=== PATIENT | female | born 1990 | race Caucasian/White ===

== ENCOUNTER → 2017-10-02 | Outpatient (CLI) | payer OTHER ==
[2017-10-02 11:19] LABS: BASOPHIL % 0.3 % (0-2); PLATELET COUNT 395 x10^3mcL (130-400); RED CELL DISTRIBUTION WIDTH 13.9 % (11.5-14.5)
[2017-10-02 11:59] LABS: UA SPECIFIC GRAVITY 1.015 (1.005-1.035); microscopic required? YES; urine erythrocyte NEGATIVE (NEGATIVE)
[2017-10-02 12:39] LABS: ALKALINE PHOSPHATASE 86 U/L (46-116); ALT/SGPT 23 U/L (14-59); AST/SGOT 19 U/L (15-37); BILIRUBIN TOTAL 0.27 mg/dL (0.20-1.00); CALCIUM 9.3 mg/dL (8.5-10.1); CARBON DIOXIDE 27.2 mmol/L (21-32); CHLORIDE SERUM 103 mmol/L (98-107); CHOLESTEROL 174 mg/dL (<200); CHOLESTEROL/HDL RATIO 3.1; CREATININE SERUM 0.8 mg/dL (0.6-1.0); GFR1 > 60 mL/min; GLUCOSE SERUM 94 mg/dL (74-106); HDL CHOLESTEROL 56 mg/dL (40-60); SODIUM SERUM 139 mmol/L (136-145); TRIGLYCERIDES 150 mg/dL (<150)
[2017-10-02 12:40] LABS: ALBUMIN 3.3 g/dL (3.4-5.0); TOTAL PROTEIN, SERUM 8.6 g/dL (6.4-8.2)
== END | disposition home or self-care (01) ==
LOC: LB 09:18
DX: Z13.228 Encounter for screening for other metabolic disorders (principal); Z72.51 High risk heterosexual behavior; Z86.39 Personal history of other endocrine, nutritional and metabolic disease; Z13.0 Encounter for screening for diseases of the blood and blood-forming organs and certain disorders involving the immune mechanism; Z13.220 Encounter for screening for lipoid disorders; Z13.29 Encounter for screening for other suspected endocrine disorder

== ENCOUNTER → 2020-06-06 | Outpatient (CLI) | payer OTHER ==
[2020-06-06 07:38] LABS: microscopic required? NO
[2020-06-06 07:45] LABS: BASOPHIL % 1.2 % (0-2); PLATELET COUNT 273 x10^3mcL (130-400); RED CELL DISTRIBUTION WIDTH 13.5 % (11.5-14.5)
[2020-06-06 07:52] LABS: urine erythrocyte NEGATIVE (NEGATIVE)
[2020-06-06 08:40] LABS: CHOLESTEROL/HDL RATIO 4.4; FREE T4 1.04 ng/dL (0.76-1.46)
[2020-06-10 13:06] LABS: VITAMIN D 1,25 DIHYDROXY 54.7 pg/mL (19.9-79.3)
== END | disposition home or self-care (01) ==
LOC: LB 07:01
DX: R73.03 Prediabetes (principal); Z13.29 Encounter for screening for other suspected endocrine disorder; Z13.228 Encounter for screening for other metabolic disorders; Z13.21 Encounter for screening for nutritional disorder; Z13.220 Encounter for screening for lipoid disorders; Z83.3 Family history of diabetes mellitus; Z13.0 Encounter for screening for diseases of the blood and blood-forming organs and certain disorders involving the immune mechanism
CPT/HCPCS: 82652; 84439

== ENCOUNTER 2020-09-02 09:52 | Inpatient (IN) | payer OTHER ==
[~2020-09-02] VITALS: Ht 170.2 cm; Wt 137.6 kg
--- NOTE | 2020-09-02 10:37 | NUR ---
PT PRESENTS WITH EPIGASTRIC PAIN THAT BEGAN 1 WEEK AGO. SHE DESCRIBES IT A DULL AND ACHY PAIN, NON RADIATING AND WORSE IN BETWEEN MEALS. SHE ENDORSES NAUSEA AND SOME DIARRHEA WITH NO VOMITING. PT IS AWAKE, ALERT, RESP E/U WITH NAD NOTED.
[2020-09-02 11:04] LABS: PLATELET COUNT 384 x10^3mcL (130-400); RED CELL DISTRIBUTION WIDTH 14.1 % (11.5-14.5)
[2020-09-02 11:17] LABS: CARBON DIOXIDE 25.8 mmol/L (21-32); CHLORIDE SERUM 102 mmol/L (98-107); CREATININE SERUM 0.7 mg/dL (0.6-1.0); GFR1 > 60 mL/min; GLUCOSE SERUM 122 mg/dL (74-106); POTASSIUM SERUM 3.6 mmol/L (3.5-5.1); SODIUM SERUM 137 mmol/L (136-145)
[2020-09-02 11:21] LABS: ALBUMIN 3.4 g/dL (3.4-5.0); ALKALINE PHOSPHATASE 110 U/L (46-116); ALT/SGPT 47 U/L (14-59); AMYLASE 32 U/L (25-115); AST/SGOT 25 U/L (15-37); BILIRUBIN TOTAL 0.24 mg/dL (0.20-1.00); LIPASE 181 IU/L (73-393); TOTAL PROTEIN, SERUM 8.1 g/dL (6.4-8.2)
--- NOTE | 2020-09-02 12:14 | NUR ---
PT SITTING UPRIGHT IN BED. AWAKE, ALERT, RESP E/U WITH NAD NOTED. PT REPORTS IMPROVEMENT OF PAIN
[2020-09-02] MEDS ORDERED: FORTAMET1000 MG PO (12:34)
[2020-09-02 12:49] LABS: MAGNESIUM 1.8 mg/dL (1.8-2.4); PHOSPHOROUS 2.9 mg/dL (2.5-4.9)
[2020-09-02 12:59] LABS: FREE T4 1.01 ng/dL (0.76-1.46); FREE THYROXINE INDEX 2.2 ug/dL (1.4-4.5); T4(THYROXINE) 6.3 ug/dL (4.7-13.3)
--- NOTE | 2020-09-02 13:19 | NUR ---
PT RETURNED FROM CT WITH CONTRAST, PER PT FELT MILD ITCHINESS IN THROAT. MADE AWARE.
--- NOTE | 2020-09-02 13:28 | NUR ---
ADMIN MED PER MD ORDER. PT STS NO ALLERGY TO MED, AAO4, RESP E/U, NO DISTRESS.
--- NOTE | 2020-09-02 13:56 | NUR ---
PT SEEN AMBULATING TO THE RESTROOM HAS A STEADY GAIT. PT AAO X4 RESPIRATIONS E/U NO DISTRESS NOTED.
[2020-09-02 14:17] LABS: T3 TOTAL 0.77 ng/mL
--- NOTE | 2020-09-02 14:41 | NUR ---
PT STATES NO MORE THROAT ITCHINESS. PT STATES STAFF FROM ADMISSION DROPPED BELONGINGS OFF TO HER. PT STATES ALL BELONGINGS ARE THERE AND IN BACKPACK LEFT BY PTS FRIEND.
[2020-09-02 14:48] LABS: MONOCYTE 2 % (0-7); SEGMENTED NEUTROPHILS 69 % (37-75); rbc morphology (normal/abnorm) NORMAL (NORMAL)
--- NOTE | 2020-09-02 15:17 | NUR ---
PT LAYING SUPINE IN GURNEY IN A POSITION OF COMFORT. REPORTS PAIN IS AT A 1/10. PT WATCHING TV. PT AAO X4 RESPIRATIONS E/U NO DISTRESS NOTED.
--- NOTE | 2020-09-02 15:24 | NUR ---
CALLED REPORT TO VIVIANA SCOTT TO ASSUME PRIMARY CARE OF PT.
--- NOTE | 2020-09-02 15:34 | NUR ---
RECEIVED PT FROM ED [facility] [facility], CAME IN DUE TO EPIGASTRIC PAIN X1 WEEK. AAOX4. DENIES HEADACHE/DIZZINESS. ABLE TO FOLLOW COMMANDS. NO SOB NOTED, LUNG SOUNDS CTA. O2 JEB=089%, RA. DENIES CHEST PAIN/PRESSURE. DENIES NUMBNESS/TINGLING SENSATION. STATED THAT SHE HAS 1/10 CONSTANT AND ACHING EPIGASTRIC PAIN, PATIENT STATED THAT PAIN IS TOLERABLE AT THIS TIME. ABDOMEN IS SOFT. BOWEL SOUNDS ACTIVE. DENIES NAUSEA/VOMITING. BOWEL SOUNDS ACTIVE. STATED THAT HER LAST BM WAS FORMED, BUT HAS IN AND OUT EPISODES OF DIARRHEA AND CONSTIPATION. VOIDS. IV SITE ON THE RAC IS PATENT AND INTACT. SIDE RAILS UPX2. CALL LIGHT ON REACH. ENDORSED TO PRIMARY NURSE VIVIANA FOR CONTINUITY OF CARE
--- NOTE | 2020-09-02 15:37 | NUR ---
RECIEVED PT IN A STABLE CONDITION FROM THE ER AT 1530. SHE IS A 30Y FEMALE ADMITTED TODAY WITH A CC OF EPIGASTRIC PAIN OVER THE PAST WEEK, WITH HER ADMITTING DX OF ABDOMINAL PAIN/LEUKOCYTOSIS. SHE IS AAOX4, PULSES PALPABLE THROUGHOUT WITH NO EDEMA NOTED. SHE IS ON ROOM AIR WITH GOOD SATURATION AT 100% AND LUNGS CTAB. ABDOMEN SOFT AND NON-DISTENDED WITH NORMOACTIVE BOWEL SOUNDS. SHE IS AMBULATORY AND SKIN IS INTACT WITH NO WOUNDS NOTED. NS RUNING AT 100ML/HR INTO IV ON HER RIGHT AC. MRSA SWAB COLLECTED. BED IS IN THE LOW POSITION WITH THE CALL LIGHT IN REACH. WILL CONTINUE TO MONITOR.
[2020-09-02 15:42] VITALS: BP 149/97
[2020-09-02 15:48] VITALS: Ht 170.2 cm; Wt 137.6 kg
--- NOTE | 2020-09-02 16:50 | NUR ---
PNEUMOCOCCAL VACCINE GIVEN AND ALL OTHER INTERVENTIONS CARRIED OUT PER PROTOCOL WITH NO SIGNIFICANT CHANGES IN STATUS NOTED. WILL CONTINUE TO MONITOR.
[2020-09-02 17:08] VITALS: BP 137/85
--- NOTE | 2020-09-02 18:32 | NUR ---
CLEAN CATCH URINE COLLECTED AND SENT TO THE LAB PER ORDER.
[2020-09-02 18:36] LABS: UA SPECIFIC GRAVITY <=1.005 (1.005-1.035); microscopic required? YES; urine erythrocyte 2+ (NEGATIVE)
[2020-09-02 18:44] LABS: AMPHETAMINE QUAL UR NONE DETECTED (See below)
--- NOTE | 2020-09-02 20:00 | NUR ---
Received pt in bed, condition stable Awake and alert Denied pain or discomfort No signs of distress noted
[2020-09-02 21:15] VITALS: BP 133/93
[2020-09-03 04:42] VITALS: BP 120/44
--- NOTE | 2020-09-03 06:20 | NUR ---
Pt slept overnight, condition stable No signs of distress noted All due care rendered Denied pain or discomfort Vitals stable
[2020-09-03 07:31] LABS: PLATELET COUNT 346 x10^3mcL (130-400); RED CELL DISTRIBUTION WIDTH 14.1 % (11.5-14.5)
[2020-09-03 07:38] VITALS: BP 130/82
--- NOTE | 2020-09-03 07:50 | NUR ---
RECIEVED PT IN A STABLE CONDITION. PT IS A 30Y FEMALE ADMITTED ON 09/02 WITH A CC OF EPIGASTRIC PAIN X1 WEEK AND HER ADMITTING DX IS EPIGASTRIC PAIN AND LEUKOCYTOSIS. SHE HAS AN ALLERGY TO IODINE EVIDENCED BY HER REQUIRING BENADRYL AFTER RECIEVING CONTRAST FOR HER CT SCAN CAUSING HER TO HAVE AN ITCHY THROAT. PULSES PALPABLE THROUGHOUT AND NO EDEMA NOTED. LUNGS CTA AND SHE IS SATTING WELL ON ROOM AIR. ABDOMEN SOFT AND NORMOACTIVE X4. BED IS IN THE LOW POSITION AND THE CALL LIGHT IS IN REACH. WILL CONTINUE TO MONITOR.
[2020-09-03 08:13] LABS: ALKALINE PHOSPHATASE 99 U/L (46-116); ALT/SGPT 43 U/L (14-59); AST/SGOT 22 U/L (15-37); BILIRUBIN TOTAL 0.33 mg/dL (0.20-1.00); CALCIUM 8.7 mg/dL (8.5-10.1); CARBON DIOXIDE 25.4 mmol/L (21-32); CHLORIDE SERUM 106 mmol/L (98-107); CREATININE SERUM 0.8 mg/dL (0.6-1.0); GFR1 > 60 mL/min; GLUCOSE SERUM 117 mg/dL (74-106); POTASSIUM SERUM 3.9 mmol/L (3.5-5.1); SODIUM SERUM 141 mmol/L (136-145); TOTAL PROTEIN, SERUM 7.4 g/dL (6.4-8.2)
[2020-09-03 08:26] LABS: CHOLESTEROL/HDL RATIO 4.1
[2020-09-03 12:06] VITALS: BP 133/87
[2020-09-03 12:11] LABS: SEGMENTED NEUTROPHILS 64 % (37-75)
[2020-09-03 12:12] LABS: MONOCYTE 3 % (0-7); PLATELET MORPHOLOGY PLATELETS NORMAL; rbc morphology (normal/abnorm) ABNORMAL (NORMAL)
--- NOTE | 2020-09-03 15:04 | NUR ---
I ACKNOWLEDGED THE ORDER TO OBTAIN CONSENT FOR THE CT GUIDED LIVER BIOPSY POSSIBLY TO BE DONE TOMORROW, HOWEVER THE PATIENT HAD AN ALLERGIC REACTION IN THE ED ON ADMISSION WHEN THEY USED CONTRAST ON HER AND SHE REQUIRED BENADRYL FOR HER ITCHY THROAT. THEREFORE I CALLED RADIOLOGY TO INFORM THEM OF THE ALLERGY (WHICH IS LISTED ON HER EMR) AND INQUIRED IF THEY PLAN TO USE CONTRAST, AND I WAS TOLD THEY OFTEN DO NOT NEED IT, BUT I MADE THEM AWARE OF THE IODINE ALLERGY AND WAS TOLD I WILL RECIEVE A CALLBACK. I ALSO INFORMED THE ORDERING MD - DR TERAN, OF THE IODINE ALLERGY. I WILL ENDORSE FOR THE ONCOMING SHIFT TO PLACE HER NPO AT MIDNIGHT TONIGHT PER THE ORDER IN PREPARATION FOR THE PROCEDURE. WILL CONTINUE TO MONITOR.
--- NOTE | 2020-09-03 15:29 | NUR ---
SPOKE WITH DR WOLFE REGARDING LIVER MASS BIOPSY ORDERED, PATHOLOGIST WILL BE AVAILABLE IN THE AM, NOTIFIED PATIENT'S NURSE VIVIANA NOTIFIED REGARDING NEED FOR NPO POST MIDNIGHT STATUS.
[2020-09-03 16:07] VITALS: BP 136/89
--- NOTE | 2020-09-03 17:38 | NUR ---
PATIENT REMAINED STABLE THROUGHOUT THE REMAINDER OF THE SHIFT WITH ALL INTERVENTIONS CARRIED OUT PER PROTOCOL. SHE IS AWARE THAT SHE WILL BE NPO STARTING AT MIDNIGHT TONIGHT FOR HER PLANNED US-GUIDED LIVER BIOPSY, AND I WILL ENDORSE IT TO THE ONCOMING NURSE. ALL NEEDS MET, WILL CONTINUE TO MONITOR.
--- NOTE | 2020-09-03 20:00 | NUR ---
Received pt in bed, condition stable Denied pain or discomfort Scheduled for liver biopsy tomorrow
[2020-09-03 20:30] VITALS: BP 125/79
[2020-09-04 05:16] VITALS: BP 106/64
--- NOTE | 2020-09-04 05:44 | NUR ---
Slept overnight, condition stable All due care rendered, no signs of distress Denied pain or discomfort NPO, scheduled for liver biopsy today
--- NOTE | 2020-09-04 07:10 | NUR ---
RECEIVED PT FROM KANDI SCOTT. PT IS AAOX4. PT MED SURG STATUS. PT DENIES CHEST PAIN. PT ON RA, NO SOB OR DISTRESS. IV TO RAC, HEPLOCKED, CDI, AND PATENT. PT DENIES PAIN OR DISCOMFORT. ALL COMFORT AND SAFETY MEASURES IN PLACE. BED IN LOW POSITION, 2 SIDE RAILS UP. CALL LIGHT WITH IN REACH. ALL QUESTIONS AND CONCERNS ADDRESSED. WILL CONTINUE TO MONITOR PT.
[2020-09-04 07:21] LABS: CARBON DIOXIDE 26.8 mmol/L (21-32); CHLORIDE SERUM 105 mmol/L (98-107); CREATININE SERUM 0.7 mg/dL (0.6-1.0); GFR1 > 60 mL/min; GLUCOSE SERUM 108 mg/dL (74-106); PHOSPHOROUS 4.4 mg/dL (2.5-4.9); POTASSIUM SERUM 3.8 mmol/L (3.5-5.1); SODIUM SERUM 141 mmol/L (136-145)
[2020-09-04 07:49] LABS: PLATELET COUNT 332 x10^3mcL (130-400); RED CELL DISTRIBUTION WIDTH 14.1 % (11.5-14.5)
--- NOTE | 2020-09-04 08:46 | NUR ---
SPOKE WITH PATIENT'S NURSE GAVIN TO VERIFY NPO STATUS FOR LIVER BIOPSY THIS AM, AND TO NOTIFY THAT PATIENT IS SCHEDULED FOR 11 AM.
[2020-09-04 08:52] VITALS: BP 130/76
[2020-09-04 11:21] LABS: BAND NEUTROPHIL 2 % (0-10); BASOPHIL 0 % (0-2); MONOCYTE 4 % (0-7); SEGMENTED NEUTROPHILS 47 % (37-75)
[2020-09-04 12:27] VITALS: BP 117/64
--- NOTE | 2020-09-04 12:30 | NUR ---
PT RETURNED FROM LIVER BIOPSY. PT REMAINS STABLE W/ NO ACUTE CHANGES TO STATUS. ALL QUESTIONS AND CONCERNS ADDRESSED. WILL CONTIUE TO MONITOR PT.
--- NOTE | 2020-09-04 14:00 | NUR ---
VS TAKEN POST PROCEDURE. Q 15 X4. @1215 117/64 (81); 87; 94%. @1230 127/85 (96); 88; 95%. @1246 132/85 (101); 95, 93% @1300 124/81 (101) 84; 97%. Q 30 X2. @1330 122/78 (91) 87 99%. @1400 135/99 (112) 99% 98. WILL CONTINUE TO MONITOR PT.
[2020-09-04 16:54] VITALS: BP 145/81
--- NOTE | 2020-09-04 17:50 | NUR ---
PT REMAINS STABLE W/ NO ACUTE CHANGES TO STATUS. ALL QUESTIONS AND CONCERNS ADDRESSED. WILL CONTINUE TO MONITOR PT.
[2020-09-04] MEDS ORDERED: CIPROFLOXACIN500 MG PO (18:12)
--- NOTE | 2020-09-04 19:10 | NUR ---
REPORT GIVEN TO VIVIENNE SCOTT. PT REMAINED STABLE THROUGHOUT MY SHIFT. ALL QUESTIONS AND CONCERNS ADDRESSED. ALL CARES ENDORSED.
--- NOTE | 2020-09-04 19:30 | NUR ---
RECEIVED REPORT FROM DAY SHIFT RN. PT RESTING IN BED. AA&O X4. NO SOB ON ROOM AIR. NO C/O PAIN. IV TO LFA, SALINE LOCKED. PT AWARE OF DISCHARGE PLAN. SAFETY MEASURES IN PLACE. CALL LIGHT WITHIN REACH.
[2020-09-04 20:01] VITALS: BP 145/81
--- NOTE | 2020-09-04 20:47 | NUR ---
PT DISCHARGED HOME. TRANSPORTATION PROVIDED BY MOTHER. NO SOB ON ROOM AIR. NO C/O PAIN. NO DISTRESS NOTED. BANDAID TO ABD, C/D/I. IV TO LFA REMOVED. CATHETER INTACT. NO BLEEDING NOTED. NO TELE MONITOR. DISCHARGE INSTRUCTIONS GIVEN. DISCHARGE PAPER SIGNED AND GIVEN TO PT.
== END 2020-09-04 20:47 | disposition home or self-care (01) | DRG 392 ==
LOC: ED 09:52 → MU 12:17
PROVIDERS: Emergency Medicine; Family Medicine; ADMIT Internal Medicine; ATTEND Internal Medicine
PROC: 0FB23ZX Excision of Left Lobe Liver, Percutaneous Approach, Diagnostic (ICD-10-PCS; principal; 2020-09-04)
DX: R10.9 Unspecified abdominal pain (principal); R65.10 Systemic inflammatory response syndrome (SIRS) of non-infectious origin without acute organ dysfunction; Z68.42 Body mass index [BMI] 45.0-49.9, adult; N28.89 Other specified disorders of kidney and ureter; R16.0 Hepatomegaly, not elsewhere classified; E11.9 Type 2 diabetes mellitus without complications; D72.829 Elevated white blood cell count, unspecified; E66.01 Morbid (severe) obesity due to excess calories; Z79.899 Other long term (current) drug therapy; Z79.01 Long term (current) use of anticoagulants; Z79.891 Long term (current) use of opiate analgesic; Z79.84 Long term (current) use of oral hypoglycemic drugs; Z91.041 Radiographic dye allergy status
CPT/HCPCS: 82962; 83880; 84439; 90732; G0378; J0696; J0744; J1200; J1885; J2001; J7030; J7060; Q0092; Q9967